=== PATIENT | female | born 1980 | race Caucasian/White ===

== ENCOUNTER 2024-04-11 07:21 | Emergency (ER) | payer BC, OTHER, SELFPAY ==
[2024-04-11 07:36] VITALS: BP 127/91; PULSE 108; RESP 20; TEMP 36.8; O2SAT 99; BMI 23.1
--- NOTE | 2024-04-11 07:45 | XR_ITS ---
Examination: PA lateral chest 2 views Technique: Upright PA lateral chest 2 views Exam date and time: April 11, 2024 0825 hrs. Comparison July 27, 2022 Indications: Coughing beginning 2 weeks ago. Findings: Normal heart size. Lungs are clear. The osseous structures are intact Impression: No active disease
[2024-04-11] MEDS: predniSONE 20 MG TABLET 60 MG PO (07:52)
[2024-04-11] MEDS: ALBUTEROL/IPRATROPIUM (Duoneb) RT SOL 3 ML NEBU INH (07:53)
[2024-04-11 07:56] VITALS: PULSE 104; RESP 16; O2SAT 99
--- NOTE | 2024-04-11 08:04 | PD.EDURI ---
Upper Respiratory Inf. RME/HPI General Chief Complaint: Flu Like Symptoms Stated Complaint: heaviness in chest, cough, fever, headache Time Seen by Provider: 04/11/24 07:27 Source: patient Arrival date/time: 04/11/24 07:21 This is a 43-year-old female presents to the emergency department complaints of worsening cough for 1 week. Patient reports she was given a Z-Emanuel by her PCP. She began with fever, cough and shortness of breath since last Friday. Reports no improvement. Denies dyspnea. Related Data Previous Rx's ?Medication ?Instructions ?Recorded albuterol sulfate 90 mcg/actuation 2 inh inhalation Q6H PRN shortness 04/11/24 breath activated powder inhaler of breath #1 ea amoxicillin 875 mg-potassium 1 tab PO BID 7 days #14 tabs 04/11/24 clavulanate 125 mg tablet benzonatate 200 mg capsule 200 mg PO BID PRN cough #20 caps 04/11/24 prednisone 50 mg tablet 50 mg PO QDAY 4 days #4 tabs 04/11/24 promethazine-DM 6.25 mg-15 mg/5 mL 5 ml PO Q6H PRN cough #118 mL 04/11/24 oral syrup Allergies Allergy/AdvReac Type Severity Reaction Status Date / Time No Known Allergies Allergy Verified 10/29/18 12:46 Review of Systems Review of Systems Systems Reviewed: All systems reviewed, normal except as documented Narrative Review of Systems: Gen: No fever, no chills, no weight loss EYES: No discharge, no visual changes, no pain HEENT: No ear pain, +conge congestion, no sore throat PULM: ++ shortness of breath, ++cough, no congestion CV: No chest pain, no dyspnea on exertion, no palpitations GI: No nausea, no vomiting, no diarrhea, no pain, no constipation : No frequency, no urgency,? no dysuria Musc/skel: No joint pain, no back pain Skin: No rash? Psyc: No hallucinations, no depression Heme/Lymph: No easy bleeding or bruising tendencies Neuro: No weakness, no headache ED Exam Narrative Physical exam: General: Sittiing in Exam table in no acute distress, answering questions appropriately HENT: normocephalic, atraumatic, EOMI, PERRLA, moist mucous membranes Chest: chest wall is nontender Cardiac: regular rate and rhythm, normal S1 and S2, no murmurs, rubs, or gallops, capillary refill ?2 seconds Pulmonary:+ Mild rhonchi upper< lobes. No wheeze, crackles, or rhonchi Abdominal: active bowel sounds, soft, nontender, nondistended Neuro: A&OX3, CN II-XII intact, sensation grossly intact bilaterally in UE and LE. Skin: no rashes, no ecchymosis Ext: no lower extremity edema Course Quality Measures none Orders Category Date Time Status Bedside COVID-19 Antigen Test NOW Care 04/11/24 07:45 Completed Bedside Influenza A&B Antigen Test NOW Care 04/11/24 07:45 Completed XR chest 2V Stat Exams 04/11/24 07:45 Completed Albuterol/Ipratr Rt Radha [Duoneb Rt Radha] Med 04/11/24 07:45 Discontinued 3 ml INH X1 ONE Promethazine/Dextromethorph [Phenergan Dm Syrup] Med 04/11/24 08:04 Discontinued 5 ml PO X1 ONE predniSONE Med 04/11/24 07:45 Discontinued 60 mg PO X1 ONE Vital Signs Vital signs: Vital Signs Temperature 98.2 F 04/11/24 07:36 Pulse Rate 108 H 04/11/24 07:36 Respiratory Rate 20 04/11/24 07:36 Blood Pressure 127/91 H 04/11/24 07:36 Pulse Oximetry (%) 99 04/11/24 07:36 Oxygen Delivery Method Room Air 04/11/24 07:36 Upper Respiratory Infection MDM Narrative MDM Narrative:: Pt presents with shortness of breath, cough, and malaise concerning for pneumonia. Was being tx with Zpack for one week however, patient reported no improvement. CXR obtained demonstrating no consolidation labs deferred at this time given patient well appearing with stable vital signs and without recent hospitalization. patient was coughing consistent initially and had a mild rhonchi upper lobes, patient was treated with a nebulizer treatment, and cough syrup patient's symptoms improved during her stay.. Given history and exam and workup presentation most likely bronchitis. Will discharge patient home with treatment which included bronchodilator, steroids, cough syrup, follow-up with her PCP. strict ER precautions given. Patient data External records reviewed:: [facility] previous records Clinical information provided by:: patient Social determinants that could affect healthcare access:: none Patient has the following chronic illnesses:: no How is presenting disease/condition affected by chronic disease/condition?: no chronic disease Evaluation data The following diagnostics were reviewed and interpreted by me:: lab results and radiology exam(s) Lab and/or radiology exams considered but not ordered:: no Interpretation Summary: Examination: PA lateral chest 2 views Technique: Upright PA lateral chest 2 views Exam date and time: April 11, 2024 0825 hrs. Comparison July 27, 2022 Indications: Coughing beginning 2 weeks ago. Findings: Normal heart size. Lungs are clear. The osseous structures are intact Impression: No active disease Medications / Prescriptions Medications or Prescriptions considered but not ordered:: no Medication administrations:: Medication Administration History Discontinued Medications Albuterol/Ipratropium (Albuterol/Ipratropium (Duoneb) Rt Radha 3 Ml Nebu) 3 ml INH X1 ONE Stop: 04/11/24 07:46 Last Admin: 04/11/24 07:53 Dose: 3 ml Documented By: Prednisone (Prednisone 20 Mg Tablet) 60 mg PO X1 ONE Stop: 04/11/24 07:46 Last Admin: 04/11/24 07:52 Dose: 60 mg Documented By: AUGUSTA Promethazine HCl/Dextromethorphan (Promethazine/Dm Syrup 5 Ml Dose) 5 ml PO X1 ONE; Protocol Stop: 04/11/24 08:05 Last Admin: 04/11/24 08:41 Dose: 5 ml Documented By: Debo All medications administered and effective Consultations Consultation(s) initiated? (list below): No Diagnosis Upper Respiratory Differential Diagnosis: upper respiratory infection, otitis media, viral infection, bronchitis, influenza and pharyngitis Most likely diagnosis given after review of the tests above:: Likely bronchitis Admission Indicated Admission indicated?: not indicated Admission Request Was there a request for admission?: No Disposition Plan Disposition Plan: Discharge Discharge Attestation Discharge Attestation: The patient and all family members were given an opportunity to ask questions and understood the discharge instructions. Discharge instructions specifically effects, indications for sooner follow up or return to the emergency department, and the expected course of current diagnosis. Patient condition: Stable Discharge Plan Plan Patient Disposition: HOME (Self Care) Patient condition on transfer: Stable Prescriptions/Referrals Prescriptions/Med Rec: New amoxicillin-pot clavulanate 875-125 mg tablet 1 tab PO BID 7 Days Qty: 14 0RF albuterol sulfate 90 mcg/actuation aerosol powdr breath activated 2 inh inhalation Q6H PRN (Reason: shortness of breath) Qty: 1 0RF prednisone 50 mg tablet 50 mg PO QDAY 4 Days Qty: 4 0RF promethazine-DM 6.25-15 mg/5 mL syrup 5 ml PO Q6H PRN (Reason: cough) Qty: 118 0RF benzonatate 200 mg capsule 200 mg PO BID PRN (Reason: cough) Qty: 20 0RF Referrals: Cindy Richards FNP [Primary Care Provider] - In 1 week Problem List Clinical Impression: Bronchitis Patient/Caregiver Discharge Instructions Discharge Activity: activity as tolerated Education Materials: ED Bronchitis with Wheezing (Adult) Additional Instructions: Please start medication as directed. Start Steroids tomorrow -Start new abx -Cough medications sent pharmacy Follow up with your PCP on friday Return to Emergency if any worsening. Print Language: Albanian Stand Alone Forms: Margie Award Info., Work/School Release, Patient Portal Info Letter Attestation Attestation The patient was seen by the midlevel practitioner. I, the co-signing physician, was present during the entire ER visit. While I did not physically examine the patient, I was available for consultation as needed.
[2024-04-11] MEDS: PROMETHAZINE/DM SYRUP 5 ML DOSE PO (08:41)
== END 2024-04-11 09:34 | disposition home or self-care (01) ==
PROVIDERS: Emergency Provider Emergency Medicine; PCP Nurse Practitioner
DX: J40 Bronchitis, not specified as acute or chronic (principal)
CPT/HCPCS: 71046; 87400; 87811; 94640; 99283; A9270; J7512

== ENCOUNTER → 2024-09-08 | Outpatient (CLI) | payer BC, OTHER, SELFPAY ==
[2024-09-08 09:19] LABS: Basophils % (Auto) 1 % (0-2.5); Eosinophils # (Auto) 0.2 Thou/mm3 (0.0-0.5); Eosinophils % (Auto) 4 % (0-10); Hematocrit 40.2 % (36.0-46.0); Hemoglobin 13.6 g/dL (12.0-16.0); Immature Granulocytes % (Auto) 0 % (0-0); Immature Granulocytes Auto 0.01 Thou/mm3 (0.00-0.00); Lymphocytes # (Auto) 1.5 Thou/mm3 (1.0-4.8); Lymphocytes % (Auto) 38 % (10-50); Mean Corpuscular HGB Conc 33.8 g/dl (31.0-37.0); Mean Corpuscular Hemoglobin 31.6 pg (25.0-35.0); Mean Corpuscular Volume 93 fL (80-100); Monocytes # (Auto) 0.5 Thou/mm3 (0.0-0.8); Monocytes % (Auto) 12 % (0-12); Neutrophils # (Auto) 1.9 Thou/mm3 (1.8-7.7); Neutrophils % (Auto) 46 % (37-80); Nucleated Red Blood Cell % 0 /100 WBC (0); Platelet Count 269 Thou/mm3 (140-440); RDW Standard Deviation 41.6 fL (36.4-46.3); Red Blood Count 4.31 Miln/mm3 (4.00-5.20)
[2024-09-08 09:45] LABS: Alanine Aminotransferase 16 U/L (10-49); Albumin, Serum 4.5 gm/dL (3.5-5.0); Albumin/Globulin Ratio 1.9 (1.2-2.2); Alkaline Phosphatase 56 U/L (46-116); Anion Gap 7 (7-16); Aspartate Amino Transferase 20 U/L (0-34); BUN/Creatinine Ratio 11 Ratio (12-20); Blood Urea Nitrogen 9 mg/dL (9-23); Calcium 9.4 mg/dL (8.3-10.6); Calcium (Corrected) 9.4 mg/dL (8.5-10.1); Carbon Dioxide 27.9 mMol/L (20.0-31.0); Chloride 107 mMol/L (98-107); Cholesterol 210 mg/dL (132-200); Creatinine (Component) 0.8 mg/dL (0.6-1.3); Free T3 3.1 pg/mL (2.3-4.2); Free T4 (Free Thyroxine) 1.09 ng/dL (0.89-1.76); Globulin 2.4 gm/dL (2.3-3.5); Glucose 88 mg/dL (74-106); HDL Cholesterol 71 mg/dL (40-60); LDL Cholesterol,Calculated 127 mg/dL (0-130); Magnesium 1.9 mg/dL (1.6-2.6); Osmolality,Calculated 280 (275-295); Potassium 3.9 mMol/L (3.4-5.1); Sodium 142 mMol/L (136-145); Thyroid Stimulating Hormone 0.67 uIU/mL (0.55-4.78); Total Protein 6.9 gm/dL (5.7-8.2); Triglycerides 58 mg/dL (30-150); eGFR > 60 See Note
[2024-09-13 08:14] LABS: Prolactin* 5.8 ng/mL
== END | disposition home or self-care (01) ==
LOC: COPL 08:43
PROVIDERS: PCP Nurse Practitioner; Referring Provider Nurse Practitioner; Visit Provider Nurse Practitioner
DX: E78.3 Hyperchylomicronemia (principal); I95.89 Other hypotension; R00.0 Tachycardia, unspecified; G43.019 Migraine without aura, intractable, without status migrainosus
CPT/HCPCS: 36415; 80053; 80061; 83735; 84146; 84439; 84443; 84481; 85025

== ENCOUNTER → 2025-01-12 | Outpatient (CLI) | payer BC, OTHER, SELFPAY ==
--- NOTE | 2025-01-12 | XR_ITS ---
Examination: Abdomen sonogram, Limited Date and time of exam: January 12, 2025 1410 hours INDICATIONS: Onset right lower abdominal pain today Technique: Real-time roth scale transabdominal sonographic images of the lower abdomen obtained. Findings: 5 mm tubular compressible structure IMPRESSION: No sonographic findings of acute appendicitis
--- NOTE | 2025-01-12 13:06 | XR_ITS ---
Examination: Abdomen sonogram, complete Date and time of exam: January 12, 2025 1352 hours INDICATIONS: Right lower abdominal pain beginning today.. Technique: Multiple real-time grayscale transabdominal sonographic images of the abdomen have been obtained. Findings: Absent gallbladder Normal common bile duct 0.5 cm Pancreatic head 2.0 cm Aorta not enlarged. Liver 14.6 cm smooth contour Normal hepatopedal portal venous flow Patent IVC Right kidney 11.7 cm arterial flow. Left kidney 10.4 cm arterial flow Spleen 8.7 cm IMPRESSION: Normal common bile duct. Liver normal size no focal liver lesions
== END | disposition home or self-care (01) ==
PROVIDERS: PCP Nurse Practitioner; Referring Provider Nurse Practitioner; Visit Provider Nurse Practitioner
DX: R10.31 Right lower quadrant pain (principal)
CPT/HCPCS: 76700; 76705